=== PATIENT | male | born 1975 | race Hispanic/Latino ===

== ENCOUNTER 2016-10-27 16:55 | Emergency (ER) | payer MEDICAID, OTHER | END 2016-10-27 21:11 | disposition left against medical advice (07) | LOC: C.ER 16:55 | DX: F10.10 Alcohol abuse, uncomplicated (principal); Z02.9 Encounter for administrative examinations, unspecified ==

== ENCOUNTER 2016-11-15 08:38 | Inpatient (IN) | payer MEDICAID, OTHER ==
[2016-11-15 08:44] VITALS: BMI 29.0
[2016-11-15 09:29] LABS: BASO % 0.8 % (0.0-2.0); EOS # 0.2 K/uL (0.0-0.7); EOS % 3.3 % (0.0-4.0); HEMATOCRIT 40.7 % (35.0-51.0); LYMPH # 0.8 K/uL (1.0-4.3); LYMPH % 16.6 % (20.0-40.0); MEAN CELL VOLUME 90.3 fL (80.0-94.0); MEAN CORPUSCULAR HEMOGLOBIN 31.4 pg (27.0-31.0); MEAN CORPUSCULAR HGB CONC 34.8 g/dL (33.0-37.0); MEAN PLATELET VOLUME 7.7 fL (7.2-11.7); MONO # 0.4 K/uL (0.0-0.8); MONO % 7.7 % (0.0-10.0); RED CELL DISTRIBUTION WIDTH 12.5 % (11.5-14.5); WHITE BLOOD COUNT 4.9 K/uL (4.8-10.8)
[2016-11-15 09:32] LABS: URINE BILIRUBIN NEGATIVE (NEGATIVE); URINE BLOOD 1+ (NEGATIVE); URINE COLOR Yellow (YELLOW); URINE GLUCOSE (UA) NORMAL (Normal); URINE KETONE NEGATIVE (NEGATIVE); URINE LEUKOCYTE ESTERASE NEG Leu/uL (Negative); URINE PROTEIN NEGATIVE (NEGATIVE); URINE UROBILINOGEN NORMAL mg/dL (0.2-1.0); WBC URINE 1 /hpf (0-5)
[2016-11-15 09:34] LABS: RBC URINE 5 /hpf (0-3)
[2016-11-15 09:38] LABS: CHLORIDE 100 mmol/L (98-107)
[2016-11-15 09:39] LABS: POTASSIUM 4.1 mmol/L (3.6-5.2); SODIUM 139 mmol/L (132-148)
[2016-11-15 09:41] LABS: ALB/GLOB RATIO 1.5 (1.0-2.1); AST/SGOT 18 U/L (17-59); BILIRUBIN,TOTAL 0.9 mg/dL (0.2-1.3); CARBON DIOXIDE 29 mmol/L (22-30); GFR AFRICAN-AMERICAN > 60
[2016-11-15 09:42] LABS: ALCOHOL SERUM < 10 mg/dl (0-10); ALKALINE PHOSPHATASE 36 U/L (38-126); ALT/SGPT 19 U/L (21-72); BLOOD UREA NITROGEN 14 mg/dL (9-20); CALCIUM 8.5 mg/dl (8.6-10.4); GLUCOSE,RANDOM 108 mg/dL (75-110)
--- NOTE | 2016-11-15 10:04 | C.PDOC ---
History Of Present Illness 40-year-old male, presents to the emergency department with complaints of suicidal ideation. patient states he has been experiencing intermittent depression for the past week. States "Last night I started having suicidal thoughts to go to my mothers building and jump off." No HI. Chief Complaint (Nursing): Psychiatric Evaluation History Per: Patient History/Exam Limitations: no limitations Onset/Duration Of Symptoms: Days Current Symptoms Are (Timing): Still Present Past Medical History Reviewed: Historical Data, Nursing Documentation, Vital Signs Vital Signs: Last Vital Signs Temp 98.2 F 11/15/16 08:44 Pulse 62 11/15/16 08:44 Resp 18 11/15/16 08:44 BP 118/77 11/15/16 08:44 Pulse Ox 98 11/15/16 10:06 - Medical History PMH: Depression Denies: Diabetes, Hepatitis, HIV, HTN, Chronic Kidney Disease, Seizures, Sexually Transmitted Disease Surgical History: Appendectomy - [facility] Procedures DETOXIFICATION SERVICES FOR SUBSTANCE ABUSE TREATMENT (07/27/16) GROUP PSYCHOTHERAPY (07/27/16) INDIV PSYCHOTHERAPY FOR SUBSTANCE ABUSE TREATMENT, SUPPORT (07/27/16) INJECT/INFUSE NEC (09/05/14) MEDICATION MANAGEMENT (07/27/16) Family History: States: No Known Family Hx - Social History Hx Tobacco Use: No Hx Alcohol Use: No Hx Substance Use: Yes - Immunization History Hx Tetanus Toxoid Vaccination: No Hx Influenza Vaccination: No Hx Pneumococcal Vaccination: No Review Of Systems Except As Marked, All Systems Reviewed And Found Negative. Constitutional: Negative for: Fever Cardiovascular: Negative for: Chest Pain, Palpitations Respiratory: Negative for: Shortness of Breath Gastrointestinal: Negative for: Vomiting Skin: Negative for: Rash Neurological: Negative for: Weakness, Numbness, Headache, Dizziness Psych: Negative for: Suicidal ideation Physical Exam - Physical Exam Appears: Non-toxic, No Acute Distress Skin: Warm, Dry, No Rash Head: Atraumatic Eye(s): bilateral: Normal Inspection Nose: Normal Oral Mucosa: Moist Lips: Normal Appearing Neck: Normal ROM Respiratory: No Accessory Muscle Use Extremity: Normal ROM Neurological/Psych: Oriented x3 ED Course And Treatment - Laboratory Results Result Diagrams: 11/15/16 09:26 11/15/16 09:26 O2 Sat by Pulse Oximetry: 98 Progress Note: Patient is medically cleared. He was seen by boom worker Елена , pending acceptance to psych floor. Disposition - Disposition Disposition: HOSPITALIZED Disposition Time: 10:56 Condition: STABLE - Clinical Impression Clinical Impression: Drug abuse, Depression, Feeling suicidal - Scribe Statement The provider has reviewed the documentation as recorded by the Luke Kelley All medical record entries made by the Scribe were at my direction and personally dictated by me. I have reviewed the chart and agree that the record accurately reflects my personal performance of the history, physical exam, medical decision making, and the department course for this patient. I have also personally directed, reviewed, and agree with the discharge instructions and disposition. Decision To Admit - Pt Status Changed To: Hospital Disposition Of: Inpatient - Admit Certification Admit to Inpatient:: After my assessment, the patient will require hospitalization for at least two midnights. This is because of the severity of symptoms shown, intensity of services needed, and/or the medical risk in this patient being treated as an outpatient. - InPatient: Physician Admission Certification: I certify that this patient requires 2 or more midnights of care for the following reason:: Treatment for depression with suicidal ideations will take more than 2 days. - . Bed Request Type: Psychiatry Admitting Physician: Johnson Dockery Patient Diagnosis: Drug abuse, Depression, Feeling suicidal
[2016-11-15 12:35] VITALS: O2SAT 100
--- NOTE | 2016-11-16 14:41 | PCM.PSYCH ---
Initial Psychiatric Evaluation - Initial Psychiatric Evaluation Type of Admission: Voluntary Legal Status: Capacity Chief Complaint (in patient's own words): I was depressed and suicidal, and I also need help for my heroin use. History of Present Illness and Precipitating Events: Patient is a 40 years old, single, unemployed male with history of depression and opiate use disorder was admitted because of treatment of depression and withdrawal from heroin. Patient reported feeling depressed for some time with sleep difficulty and decreased appetite. Reported he lost about 20 pounds in 4 months. Also reported having suicidal ideations with plan to jump from the roof of his mother's building. Patient came to ER for help. Denied any previous suicidal attempts or any homicidal ideations. Denied any psychotic manic or anxiety symptoms. Patient reported history of 2 previous inpatient admissions at [facility]. Heroine: Started using about 5 years ago, reported he was using 15-20 bags daily, snorting. Last use reported yesterday. History of one previous detox at [facility] and 3 previous rehabs. His last rehabilitation was in 2012 had [facility]. Denied use of any other drugs including alcohol cocaine and cannabis. Denied smoking cigarettes. Patient was born in [place] high school graduation, not working. His last job was one year ago. Never , has 16 years old daughter who lives with her mother. Patient lives with friend and is supported by family and friends. His height is 5 feet 7 inches and weight is 185 pounds. Current Medications: Active Medications Generic Name Dose Route Start Last Admin Trade Name Freq PRN Reason Stop Dose Admin Acetaminophen 650 mg 11/16/16 10:34 Tylenol 325mg Tab PO Q4H PRN Fever greater than 101 F Clonidine HCl 0.1 mg 11/16/16 10:34 Catapres PO Q8 PRN COWS Score More or Equal to 5 Dicyclomine HCl 10 mg 11/16/16 10:36 Bentyl PO QID PRN GI distress Hydroxyzine HCl 25 mg 11/16/16 10:35 11/16/16 11:48 Atarax PO 25 mg Q6 PRN Administration Anxiety Loperamide HCl 2 mg 11/16/16 10:34 Imodium PO Q8 PRN Diarrhea Ondansetron HCl 4 mg 11/16/16 10:34 Zofran Tab PO Q8 PRN Nausea/Vomiting Past Psychiatric History - Past Psychiatric History Previous Treatment History: Inpatient At [facility]: [facility] History of Abuse: None reported History of ETOH/Drug Use: See HPI History of Family Illness: Reported his father has history of opiate use Pertinent Medical Hx (Current Medical&Sleep Prob, Allergies): Allergies Allergy/AdvReac Type Severity Reaction Status Date / Time No Known Allergies Allergy Verified 11/15/16 08:44 No Known Home Med [No Known Home Med] 09/06/14 History of [employer] shunt. Patient reported he had been patient before for the treatment of hydrocephalus which was removed few years ago. Review of Systems - Psychiatric Psychiatric: Depression Mental Status Examination - Personal Presentation Personal Presentation: Looks stated age - Affect Affect: Depressed - Motor Activity Motor Activity: Calm - Reliability in Providing Information Reliability in Providing Information: Fair - Speech Speech: Organized - Mood Mood: Depressed - Formal Thought Process Formal Thought Process: No Impairment - Hallucinations/Delusions Hallucinations: Other (None reported) Delusions: Other - Obsessions/Compulsions Obsessions: None Compulsions: None - Cognitive Functions Orientation: Person, Place, Situation, Time Sensorium: Alert Attention/Concentration: Attentive Abstract Thinking: [place] Estimate of Intelligence: Average Judgement: Intact, as evidence by: Insight regarding need for hospitalization Memory: Recent intact, as evidence by: 3/3 object recall, Remote intact, as evidenced by: Ability to recall historical events - Risk Risk: Withdrawal, Diminished functioning - Strength & Assets Inventory Strength & Assets Inventory: Family support, Cooperative - Limitations Limitations: Other DSM 5 DX - DSM 5 DSM 5 Diagnosis: Major depressive disorder recurrent severe Opiate use disorder severe Opiate withdrawal - Recommended/Plan of Treatment Treatment Recommendations and Plan of Treatment: Patient education Supportive therapy Will start methadone detox protocol Zoloft 50 mg for depression Other when necessary medications Wants to go to [facility] after discharge from the hospital for follow-up care Projected ELOS: 8-10 days - Smoking Cessation Smoking Cessation Initiated: No Reason for not providing: Patient doesn't smoke cigarettes
--- NOTE | 2016-11-17 17:17 | PCM.PYCHPN ---
Psychiatric Progress Note - Psychiatric Progress Note Patient seen today, length of contact: 15 minutes Patient Chief Complaint: I'm feeling better with mild withdrawal symptoms. Problems Identified/Issues Discussed: Patient seen. Chart reviewed. Case discussed with the staff. Issues related to illness and treatment were discussed with the patient. Patient reported compliant with treatment with no adverse affects. Reported feeling much better with very mild withdrawal symptoms. Reported no auditory visual hallucination no suicidal ideations. Patient signed a 48 hour notice for discharge ending tomorrow. Patient will get his methadone 5 mg tomorrow. At the time of evaluation, patient was awake alert oriented 3, had no delusions, no auditory or visual hallucinations, no suicidal ideations or homicidal ideations. Medical Problems: None reported Diagnostic Results: Reviewed DSM 5 Symptoms Update: Improving with treatment Medication Change: No Medical Record Reviewed: Yes Mental Status Examination - Cognitive Function Orientation: Person, Place, Situation, Time Memory: Intact Attention: WNL Concentration: WNL Association: WNL Fund of Knowledge: WNL Decription of patient's judgement and insights: Fair - Mood Mood: Depressed (Less than before) - Affect Affect: Depressed - Speech Speech: Appropriate - Formal Thought Process Formal Thought Process: No Impairment Psychotic Thoughts and Behaviors: None - Suicidal Ideation Suicidal Ideation: No - Homicidal Ideation Homicidal Ideation: No Goal/Treatment Plan - Goal/Treatment Plan Need for Continued Stay: Remain at risks for inpatient hospitalization, Discharge may exacerbated symptoms, Severe functional impairment Progress Toward Problem(s) and Goals/Treatment Plan: Patient education Supportive therapy Continue treatment as before Wants to go to [facility] after discharge from the hospital for follow-up care Estimated Date of D/C: 11/18/16 - Smoking Cessation Smoking Cessation Initiated: No Reason for not providing: Patient doesn't smoke cigarettes
--- NOTE | 2016-11-18 09:48 | PCM.PYCHDC ---
Mental Status Examination - Mental Status Examination Orientation: Person, Place, Situation, Time Memory: Intact Mood: Neutral Affect: Constricted Speech: Soft Attention: WNL Concentration: WNL Association: WNL Fund of Knowledge: WNL Formal Thought Process: No Impairment Description of patient's judgement and insight: good, fair Psychotic Thoughts and Behaviors: denies any AVH Suicidal Ideation: No Current Homicidal Ideation?: No Discharge Summary - Discharge Note Reason for Hospitalization: Patient is a 40 years old, single, unemployed male with history of depression and opiate use disorder was admitted because of treatment of depression and withdrawal from heroin. Patient reported feeling depressed for some time with sleep difficulty and decreased appetite. Reported he lost about 20 pounds in 4 months. Also reported having suicidal ideations with plan to jump from the roof of his mother's building. Patient came to ER for help. Denied any previous suicidal attempts or any homicidal ideations. Denied any psychotic manic or anxiety symptoms. Patient reported history of [address] [facility]. Heroine: Started using about 5 years ago, reported he was using 15-20 bags daily, snorting. Last use reported yesterday. History of one previous detox at [facility] and 3 previous rehabs. His last rehabilitation was in 2012 had [facility]. Denied use of any other drugs including alcohol cocaine and cannabis. Denied smoking cigarettes. Patient was born in [place] high school graduation, not working. His last job was one year ago. Never , has 16 years old daughter who lives with her mother. Patient lives with friend and is supported by family and friends. His height is 5 feet 7 inches and weight is 185 pounds. Consultations:: List each consultation separately and include: 1. Reason for request. 2. Findings. 3. Follow-up Summary of Hospital Course include:: 1. Description of specific treatment plan utilized for patients during their course of treatmen. 2. Summarize the time- course for resolution of acute symptoms and/or regressed behaviors. 3. Describe issues identified and worked on during hospitalization. 4. Describe medication utilized. 5. Describe medical problems identified and treated. 6. Reassessment of suicide risk Summary of Hospital Course: During the course of his stay, patient (pt) started progressively improving and he no longer remained irritable, depressed, and suicidal. His mood was improved and he started attending groups and meetings and started socializing. Patient denied any feelings of hopelessness, helplessness, and worthlessness, denied any problem with the sleep or appetite, denied suicidal ideation or homicidal ideation. Pt denied any auditory or visual hallucinations. Some changes were made in his current medications and patient was discharged on following medications. He tolerated these medications very well and denied any side effects. - Final Diagnosis (DSM 5) Condition upon Discharge: STABLE DSM 5: Major depressive disorder recurrent severe Opiate use disorder severe Opiate withdrawal Disposition: HOME/ ROUTINE Follow-up Treatment Plan: Education: Pt was educated and counseled about the risks and benefits of taking and not taking medications. Pt was educated and counseled about the risks of drinking and abusing drugs. Pt was educated and counseled to go to the ER or call 911 if pt develop suicidal ideation or homicidal ideation, worsening of symptoms or severe side effects of the meds. - Smoking Cessation Smoking Cessation Medication prescribed: No - Antipsychotic Medications Pt discharged on 2 or more routine antipsychotic medications: No
[2016-11-18 11:42] VITALS: BP 98/55; PULSE 54; RESP 19; TEMP 97.8
== END 2016-11-18 10:40 | disposition home or self-care (01) | DRG 430 ==
LOC: C.ER 08:38 → C.9E 10:54 → C.5E 12:23
PROC: GZ3ZZZZ Medication Management (ICD-10-PCS; principal; 2016-11-15)
PROC: GZ56ZZZ Individual Psychotherapy, Supportive (ICD-10-PCS; 2016-11-15)
PROC: HZ2ZZZZ Detoxification Services for Substance Abuse Treatment (ICD-10-PCS; 2016-11-15)
DX: F33.2 Major depressive disorder, recurrent severe without psychotic features (principal); R45.851 Suicidal ideations; F11.23 Opioid dependence with withdrawal